=== PATIENT | female | born 1975 | race Caucasian/White ===

== ENCOUNTER 2017-02-06 01:25 | Emergency (ER) | payer OTHER ==
[~2017-02-06 01:25] MED LIST: BACTROBAN15 GM TOP; CELEXA; CIPRO PO; CLEOCIN HCL300 M1 PO; CLEOCIN PO; FLEXERIL PO; MACROBID100 M1 PO; MEDROL PO; NO MEDICATIONS; PYRIDIUM PO; URINARY PAIN97.5 MG PO; VOLTAREN75 MG PO; WELLBUTRIN
== END 2017-02-06 02:15 | disposition home or self-care (01) ==
LOC: SED 01:25
DX: S05.02XA Injury of conjunctiva and corneal abrasion without foreign body, left eye, initial encounter (principal); F17.200 Nicotine dependence, unspecified, uncomplicated; Z88.2 Allergy status to sulfonamides; Z88.0 Allergy status to penicillin; Z88.1 Allergy status to other antibiotic agents; Z91.041 Radiographic dye allergy status; X58.XXXA Exposure to other specified factors, initial encounter
CPT/HCPCS: 99283